=== PATIENT | male | born 1980 ===

== ENCOUNTER 2021-05-07 13:42 | Outpatient (REF) | payer OTHER, SELFPAY ==
[2021-05-07 17:27] LABS: Fentanyl, urine POSITIVE (Not Detect)
[2021-05-14 12:15] LABS: Buprenorphine NEGATIVE; Naloxone NEGATIVE; Norbuprenorphine NEGATIVE
== END 2021-05-07 13:43 | disposition home or self-care (01) ==
LOC: HO.LNP 13:42
PROVIDERS: Visit Provider Internal Medicine
DX: F11.20 Opioid dependence, uncomplicated (principal); Z51.81 Encounter for therapeutic drug level monitoring; Z79.899 Other long term (current) drug therapy
CPT/HCPCS: 80305; 80307; 80348; 80362; 99202